=== PATIENT | male | born 1960 | race American Indian/Alaskan Native ===

== ENCOUNTER 2017-12-05 07:35 | Emergency (ER) | payer SELFPAY ==
[2017-12-05 08:01] VITALS: BP 128/79
--- NOTE | 2017-12-05 09:29 | Emergency Department Report ---
Chief Complaint: Medical Clearance Stated Complaint: RAPID HEART RATE - HPI History of Present Illness: 57-year-old male presents with complaint of palpitations and heart fluttering with occasional fast heart rate going on over the past few weeks. It happens when he donates blood but also occasionally when he does not. He denies any chest pain, shortness of breath. He denies any past medical history. He is a tobacco smoker and also uses marijuana. He admits to a lot of caffeine use. No recent travel or sick contacts at home. He does not have a primary care physician. He has not taken anything for his symptoms prior to presentation. - ROS Review of Systems: Positive for palpitations Negative for chest pain, shortness of breath, fever, nausea, vomiting, back pain or diaphoresis - Exam Vital Signs: Vital Signs 12/05/17 07:58 Temperature 97.8 F Pulse Rate 103 H Respiratory 16 Rate Blood Pressure 128/79 O2 Sat by Pulse 98 Oximetry Physical Exam: Heart and lungs sounds are normal to auscultation. Patient is resting comfortably in no acute distress. MSE screening note: Focused history and physical exam performed. Due to findings the following was ordered: The patient already has an EKG completed that shows sinus arrhythmia with LVH but no ST elevation ID, ischemia. I have ordered a CBC, BMP, TSH and troponin. If negative, the patient should be able to go home with referral to cardiology for a Holter monitor ED Disposition for MSE Condition: Stable Referrals: PRIMARY CARE, [Primary Care Provider] - 3-5 Days
[2017-12-05 10:33] LABS: Basophils # (Auto) 0.1 K/mm3 (0.0-0.1); Basophils % (Auto) 0.5 % (0.0-1.8); Eosinophils % (Auto) 0.2 % (0.0-4.3); Lymphocytes # (Auto) 1.5 K/mm3 (1.2-5.4); Lymphocytes % (Auto) 15.1 % (13.4-35.0); Mean Corpuscular HGB Conc 36 % (32-34); Mean Corpuscular Hemoglobin 29 pg (28-32); Mean Corpuscular Volume 82 fl (84-94); Monocytes # (Auto) 0.8 K/mm3 (0.0-0.8); Monocytes % (Auto) 7.8 % (0.0-7.3); Platelet Count 232 K/mm3 (140-440); Red Blood Count 5.13 M/mm3 (3.65-5.03); Red Cell Distribution Width 15.1 % (13.2-15.2)
[2017-12-05 10:36] LABS: Hematocrit 42.2 % (35.5-45.6); Hemoglobin 15.1 gm/dl (11.8-15.2)
[2017-12-05 10:44] LABS: BUN/Creatinine Ratio 14; Blood Urea Nitrogen 10 mg/dL (9-20); Calcium 9.3 mg/dL (8.4-10.2); Hemolysis Index 8
--- NOTE | 2017-12-05 11:18 | Emergency Department Report ---
ED Palpitations HPI - General Chief Complaint: Medical Clearance Stated Complaint: RAPID HEART RATE Time Seen by Provider: 12/05/17 09:47 Source: patient, family Mode of arrival: Ambulatory Limitations: No Limitations - History of Present Illness Initial Comments: Patient is a 57-year-old male here today for heart fluttering this morning. He has no other symptoms. Denies any chest pain or history of heart disease. Blood pressure stable but he said he thinks he has a history of high blood pressure that he is not sure. Patient said he's been under a lot of stress because his sister recently and he is traveling here from [place]. He also said he had a bubbling sensation in his stomach which has resolved. Denies any shortness of breath. Pain is 0-10. Patient also reports that he drinks coffee all day. No history of heart attack or heart disease. Fluttering episodic tenderness resolved. Unknown cause MD Complaint: palpitations -: This morning Context: occured during rest Arrythmia History: other (none) Associated Symptoms: other (stress and coffee). denies: chest pain, shortness of breath, syncope, near-syncope, nausea/vomiting, anxiety, diaphoresis, cough, parasthesias, feeling of impending doom, muscle cramps Treatments Prior to Arrival: other (none) - Related Data Home Medications Medication Instructions Recorded Confirmed Last Taken No Known Home Medications [No 12/05/17 12/05/17 Unknown Reported Home Medications] Allergies Allergy/AdvReac Type Severity Reaction Status Date / Time No Known Allergies Allergy Unverified 12/05/17 08:01 ED Review of Systems ROS: Stated complaint: RAPID HEART RATE Other details as noted in HPI Constitutional: denies: chills, fever, weakness Eyes: denies: eye pain, eye discharge, vision change ENT: denies: ear pain, throat pain, congestion Respiratory: denies: cough, orthopnea, shortness of breath, SOB with exertion, SOB at rest, stridor, wheezing Cardiovascular: palpitations. denies: chest pain, dyspnea on exertion, edema, syncope, paroxysmal nocturnal dyspnea Gastrointestinal: denies: abdominal pain, nausea, vomiting, diarrhea, constipation, hematemesis, melena, hematochezia Genitourinary: denies: urgency, dysuria Musculoskeletal: denies: back pain, joint swelling, arthralgia, myalgia Skin: denies: rash, lesions, pruritus Neurological: denies: headache, weakness, numbness, paresthesias, confusion, abnormal gait, vertigo Psychiatric: denies: anxiety, depression ED Past Medical Hx - Past Medical History Previous Medical History?: No - Surgical History Past Surgical History?: No - Family History Family history: hypertension - Social History Smoking Status: Current Every Day Smoker Substance Use Type: Marijuana, Other (caffeine consumption all day) Other Social History: visiting from out of town sister recentyly - Medications Home Medications: Home Medications Medication Instructions Recorded Confirmed Last Taken Type No Known Home Medications [No 12/05/17 12/05/17 Unknown History Reported Home Medications] ED Physical Exam - General Limitations: No Limitations General appearance: alert, in no apparent distress - Head Head exam: Present: atraumatic, normocephalic, normal inspection - Eye Eye exam: Present: normal appearance Pupils: Present: normal accommodation - ENT ENT exam: Present: normal exam, normal orophraynx, mucous membranes moist, TM's normal bilaterally, normal external ear exam - Neck Neck exam: Present: normal inspection, full ROM. Absent: tenderness, lymphadenopathy - Respiratory Respiratory exam: Present: normal lung sounds bilaterally. Absent: respiratory distress, wheezes, rales, rhonchi, stridor, chest wall tenderness, accessory muscle use, decreased breath sounds, prolonged expiratory - Cardiovascular Cardiovascular Exam: Present: normal rhythm, tachycardia, normal heart sounds. Absent: systolic murmur, diastolic murmur, clicks, JVD - GI/Abdominal GI/Abdominal exam: Present: soft, normal bowel sounds. Absent: distended, tenderness, guarding, rebound, rigid, organomegaly, mass, bruit, pulsatile mass , hernia - Extremities Exam Extremities exam: Present: normal inspection, full ROM, normal capillary refill , other (No CCE. +2 pulses to extremoties). Absent: tenderness, pedal edema, joint swelling, calf tenderness - Back Exam Back exam: Present: normal inspection, full ROM. Absent: tenderness - Neurological Exam Neurological exam: Present: alert, oriented X3, normal gait - Psychiatric Psychiatric exam: Present: normal affect, normal mood - Skin Skin exam: Present: warm, dry, intact, normal color. Absent: rash ED Course Vital Signs 12/05/17 12/05/17 07:58 12:07 Temperature 97.8 F Pulse Rate 103 H 88 Respiratory 16 Rate Blood Pressure 128/79 O2 Sat by Pulse 98 Oximetry - Reevaluation(s) Reevaluation #1: 12/05/17 12:14 Patient stable throughout ED course. No episode of palpitation while in the emergency room ED Medical Decision Making - Lab Data Result diagrams: 12/05/17 09:48 12/05/17 09:48 Lab Results 12/05/17 12/05/17 12/05/17 Range/Units 09:48 09:48 09:48 WBC 9.9 (4.5-11.0) K/mm3 RBC 5.13 H (3.65-5.03) M/mm3 Hgb 15.1 (11.8-15.2) gm/dl Hct 42.2 (35.5-45.6) % MCV 82 L (84-94) fl MCH 29 (28-32) pg MCHC 36 H (32-34) % RDW 15.1 (13.2-15.2) % Plt Count 232 (140-440) K/mm3 Lymph % (Auto) 15.1 (13.4-35.0) % Delta % (Auto) 7.8 H (0.0-7.3) % Eos % (Auto) 0.2 (0.0-4.3) % Baso % (Auto) 0.5 (0.0-1.8) % Lymph # 1.5 (1.2-5.4) K/mm3 Delta # 0.8 (0.0-0.8) K/mm3 Eos # 0.0 (0.0-0.4) K/mm3 Baso # 0.1 (0.0-0.1) K/mm3 Seg Neutrophils % 76.4 H (40.0-70.0) % Seg Neutrophils # 7.6 (1.8-7.7) K/mm3 Sodium 140 (137-145) mmol/L Potassium 4.2 (3.6-5.0) mmol/L Chloride 104.1 (98-107) mmol/L Carbon Dioxide 29 (22-30) mmol/L Anion Gap 11 mmol/L BUN 10 (9-20) mg/dL Creatinine 0.7 L (0.8-1.5) mg/dL Estimated GFR > 60 ml/min BUN/Creatinine Ratio 14 % Glucose 94 (75-100) mg/dL Calcium 9.3 (8.4-10.2) mg/dL Troponin T < 0.010 (0.00-0.029) ng/mL TSH 1.130 (0.270-4.200) mlU/mL - EKG Data -: EKG Interpreted by Me (Dr. Levin) EKG shows normal: sinus rhythm (sinus arrhythmia at 87 bpm) - EKG Data Interpretation: no acute changes, normal EKG - Medical Decision Making ED course: DX: Episodic heart palpitation-resolved Patient drinks coffee all day that he was confluent on caffeine effect on the hard. I discussed with him that he should try and decrease his intake of coffee and other carbonated beverages. -I also discussed with him that he needs to follow-up with a staff attorney to refer to discharge instruction paperwork for details on phone number and address. I discussed with him that he may need to have Holter monitor placed for monitoring of heart abnormalities. Cardiac risk score is low.PIO score 0 EKG sinus arrhythmia at 87 bpm Troponin negative, TSH negative cbc and chemistry is stable please refer to laboratory section for details on lab Condition discharged home in stable condition and voices understanding of discharge instruction, to follow up with staff attorney, diagnosis and treatment plan. He reports that he'll be going back to [place] and 90 days so I told him that if he needs to follow up with primary care he can follow-up at [facility]. - Differential Diagnosis cardiac arrhythmia, benign arrhythmia, anxiety Critical care attestation.: If time is entered above; I have spent that time in minutes in the direct care of this critically ill patient, excluding procedure time. ED Disposition Clinical Impression: Heart palpitations, Caffeine use Disposition: DC-01 TO HOME OR SELFCARE Is pt being admited?: No Does the pt Need Aspirin: No Condition: Stable Instructions: Palpitations (ED), Holter Monitoring (ED) Additional Instructions: Please follow up with staff attorney as instructed See discharge instructions and palpitation and Holter monitor. Please decrease her caffeine intake which includes coffee and carbonated beverages If his symptoms return, return to the emergency room otherwise follow-up at [facility] for primary care visits and staff attorney for monitoring of heart palpitation Referrals: [facility] [Outside] - 12/10/17 ISAAC CACERES MD [Staff Physician] - 12/10/17
== END 2017-12-05 13:00 | disposition home or self-care (01) ==
LOC: ED 07:35
DX: R00.2 Palpitations (principal); F15.90 Other stimulant use, unspecified, uncomplicated; F17.200 Nicotine dependence, unspecified, uncomplicated; F12.10 Cannabis abuse, uncomplicated
CPT/HCPCS: 36415; 80048; 84443; 84484; 85025; 93005; 93010; 99283

== ENCOUNTER 2017-12-12 21:46 | Emergency (ER) | payer SELFPAY ==
[2017-12-12 23:39] LABS: Basophils # (Auto) 0.1 K/mm3 (0.0-0.1); Basophils % (Auto) 0.5 % (0.0-1.8); Eosinophils # (Auto) 0.1 K/mm3 (0.0-0.4); Hematocrit 40.1 % (35.5-45.6); Hemoglobin 14.2 gm/dl (11.8-15.2); Lymphocytes # (Auto) 2.7 K/mm3 (1.2-5.4); Lymphocytes % (Auto) 26.5 % (13.4-35.0); Mean Corpuscular HGB Conc 35 % (32-34); Mean Corpuscular Hemoglobin 29 pg (28-32); Mean Corpuscular Volume 83 fl (84-94); Monocytes % (Auto) 9.5 % (0.0-7.3); Platelet Count 238 K/mm3 (140-440); Red Blood Count 4.85 M/mm3 (3.65-5.03); Red Cell Distribution Width 15.1 % (13.2-15.2)
[2017-12-12 23:55] LABS: Albumin 4.5 g/dL (3.9-5); BUN/Creatinine Ratio 11; Blood Urea Nitrogen 8 mg/dL (9-20); Calcium 9.3 mg/dL (8.4-10.2); Hemolysis Index 6; Lipase 54 units/L (13-60)
[2017-12-12 23:56] LABS: Alanine Aminotransferase < 5 units/L (7-56)
--- NOTE | 2017-12-13 00:25 | Emergency Department Report ---
HPI - General Chief Complaint: Abdominal Pain Time Seen by Provider: 12/13/17 00:18 - HPI HPI: 57-year-old -[place] male presents to the emergency department from home with complaint of a 3 to four-day history of some generalized abdominal discomfort. He denies any nausea and vomiting. He has been having some constipation but says that he does have a bowel movement when he uses a laxative. He's been taking some milk of magnesia and tagament but still says that his abdomen is "jumping and bubbling." He denies any fever, dysuria, discharge. He lives in [place] and is returning there in a few months and therefore does not have a local primary care physician. No sick contacts at home. ED Past Medical Hx - Past Medical History Previous Medical History?: No - Surgical History Past Surgical History?: Yes Additional Surgical History: ankle - Social History Smoking Status: Current Every Day Smoker Substance Use Type: Marijuana - Medications Home Medications: Home Medications Medication Instructions Recorded Confirmed Last Taken Type Nitrofurantoin Monohyd/M-Cryst 100 mg PO BID #14 capsule 12/13/17 Unknown Rx [Macrobid 100 mg Capsule] ED Review of Systems ROS: Stated complaint: ABD PAIN Other details as noted in HPI Comment: All other systems reviewed and negative Constitutional: denies: chills, fever Eyes: denies: eye pain, eye discharge, vision change ENT: denies: ear pain, throat pain Respiratory: denies: cough, shortness of breath, wheezing Cardiovascular: denies: chest pain, palpitations Gastrointestinal: abdominal pain, constipation. denies: nausea, vomiting Genitourinary: denies: urgency, dysuria Musculoskeletal: denies: back pain, joint swelling, arthralgia Skin: denies: rash, lesions Neurological: denies: headache, weakness, paresthesias Physical Exam - Physical Exam Vital Signs: Vital Signs 12/12/17 21:56 Temperature 97.9 F Pulse Rate 88 Respiratory 20 Rate Blood Pressure 120/79 O2 Sat by Pulse 98 Oximetry Physical Exam: GENERAL: The patient is well-developed well-nourished. HENT: Normocephalic. Atraumatic. Patient has moist mucous membranes. EYES: Extraocular motions are intact. Pupils equal reactive to light bilaterally. NECK: Supple. Trachea is midline. CHEST/LUNGS: Clear to auscultation. There is no respiratory distress noted. HEART/CARDIOVASCULAR: Regular. There is no tachycardia. There is no murmur. ABDOMEN: Abdomen is soft. Mild generalized tenderness to palpation. No guarding. Patient has normal bowel sounds. SKIN: Skin is warm and dry. NEURO: The patient is awake, alert, and oriented. The patient is cooperative. The patient has no focal neurologic deficits. The patient has normal speech and gait. MUSCULOSKELETAL: There is no tenderness or deformity. There is no limitation range of motion. There is no evidence of acute injury. ED Course Vital Signs 12/12/17 21:56 Temperature 97.9 F Pulse Rate 88 Respiratory 20 Rate Blood Pressure 120/79 O2 Sat by Pulse 98 Oximetry ED Medical Decision Making - Lab Data Result diagrams: 12/12/17 22:34 12/12/17 22:34 - Radiology Data Radiology results: report reviewed, image reviewed interpreted by me: Abdominal x-ray shows some nonspecific bowel gas. CT of the abdomen and pelvis does not show any acute process. - Medical Decision Making Patient's blood work is mostly unremarkable. Urinalysis shows a mild urinary tract infection. I do not believe that the mild urinary tract infection is what is causing his abdominal pain. Vital signs stable throughout his ED course including being afebrile. CT scan of the abdomen and pelvis does not show any acute process or etiology of his symptoms. He appears safe for discharge home at this time and will be given a referral for gastroenterology. He will return to the ER with any worsening of his symptoms or any acute distress. - Differential Diagnosis bowel obstruction, diverticulitis, gastritis, GERD Critical Care Time: No Critical care attestation.: If time is entered above; I have spent that time in minutes in the direct care of this critically ill patient, excluding procedure time. ED Disposition Clinical Impression: Abdominal pain Qualifiers: Abdominal location: generalized Qualified Code(s): R10.84 - Generalized abdominal pain UTI (urinary tract infection) Qualifiers: Urinary tract infection type: acute cystitis Hematuria presence: without hematuria Qualified Code(s): N30.00 - Acute cystitis without hematuria Disposition: TO HOME OR SELFCARE Is pt being admited?: No Condition: Stable Instructions: Urinary Tract Infection in Men (ED), Abdominal Pain (ED) Additional Instructions: Please follow up with a primary care physician in the next 2 days. I have given you a referral for a local railroad crossing protection maintainer, Dr. Oviedo, to follow up regarding your abdominal pain. I have also given a referral for a local urologist, Dr. Muro, to follow up regarding the urinary tract infection. Return to the emergency Department with any worsening of your symptoms or any acute distress. Prescriptions: Nitrofurantoin Monohyd/M-Cryst [Macrobid 100 mg Capsule] 100 mg PO BID #14 capsule Referrals: PRIMARY CAREMD [Primary Care Provider] - 3-5 Days ALEXIS MURO MD [Staff Physician] - 3-5 Days EZRA OVIEDO MD [Staff Physician] - 3-5 Days [facility] [Outside] - 3-5 Days Time of Disposition: 03:08
[2017-12-13 01:55] LABS: Bilirubin,Urine NEG (Negative); Blood,Urine SM (Negative); Color,Urine Yellow (Yellow); Mucus,Urine FEW /HPF; Protein,Urine <15 mg/dL mg/dL (Negative); Urobilinogen,Urine < 2.0 mg/dL (<2.0)
[2017-12-13 02:18] VITALS: BP 124/68
--- NOTE | 2017-12-16 14:18 | XRay Report ---
FINAL REPORT PROCEDURE: XR ABDOMEN 1V AP TECHNIQUE: Abdominal radiograph, single supine AP view. HISTORY: abd discomfort/constipation COMPARISON: No prior studies are available for comparison. FINDINGS: Bowel gas pattern:Nonobstructive. Masses or calcifications:None. Bony structures:No significant abnormality. Other:None. IMPRESSION: No acute abnormality
--- NOTE | 2017-12-16 14:23 | Cat Scan Report ---
FINAL REPORT PROCEDURE: CT ABDOMEN PELVIS W CON TECHNIQUE: Computerized axial tomography of the abdomen and pelvis was performed after the IV injection of iodinated nonionic contrast. HISTORY: Abd pain COMPARISON: No prior studies are available for comparison. FINDINGS: Visualized lower thorax: No significant abnormality. Liver: Normal size and attenuation. Spleen: Normal size and attenuation. Gallbladder and biliary system: Normal. Pancreas: Normal. Adrenals: Normal. Kidneys: Normal. GI tract: There is no bowel obstruction, colitis or enteritis. The appendix is normal.. Lymph nodes and mesentery: Normal. Vasculature: Normal. Bladder: Normal. Reproductive organs: Normal. Peritoneum: There is no ascites or free air, abscess or adenopathy.. Musculoskeletal structures: No significant abnormality. Other: None. IMPRESSION: There is no acute intra-abdominal abnormality.
== END 2017-12-13 03:21 | disposition home or self-care (01) ==
LOC: ED 21:46
DX: N39.0 Urinary tract infection, site not specified (principal); F17.200 Nicotine dependence, unspecified, uncomplicated
CPT/HCPCS: 36415; 74018; 74177; 80053; 81001; 83690; 85025; 99284; Q9967